=== PATIENT | female | born 1975 | race Caucasian/White ===

== ENCOUNTER 2025-06-29 15:16 | Outpatient (CLI) | payer BC ==
[2025-06-29 16:30] LABS: #Basophils 0.03 10x3/uL (0.0-0.2); #Eosinophils 0.19 10x3/uL (0.0-0.7); #Monocytes 0.55 10x3/uL (0.11-0.59); #Neutrophils 4.69 10x3/uL (1.40-6.50); %Basophils 0.4 % (0.0-1.0); %Eosinophils 2.6 % (0.0-10.0); %Lymphocytes 24.6 % (21.0-51.0); %Monocytes 7.6 % (0.0-10.0); %Neutrophils 64.5 % (42.0-75.0); Hematocrit 40.3 % (36.0-47.0); Hemoglobin 12.6 g/dL (12.0-16.0); Mean Corpuscular Hemoglobin 27.0 pg (27.0-31.0); Mean Corpuscular Volume 86.3 fL (78.0-98.0); Platelet Count 176 10x3/uL (130-400); Red Blood Cell (RBC) Count 4.67 mill/uL (4.20-5.40); White Blood Cell (WBC) Count 7.27 10x3/uL (4.8-10.8)
[2025-06-29 16:52] LABS: Anion Gap 14 mmol/L (10-20); BUN (Urea Nitrogen) 10 mg/dL (7.0-18.7); Calc. Creatinine Clearance 0 mL/min (70-130); Calcium 9.0 mg/dL (7.8-10.44); Carbon Dioxide 24 mmol/L (22-29); Chloride 108 mmol/L (98-107); Glucose 95 mg/dL (70-105); Potassium 4.1 mmol/L (3.5-5.1); Sodium 142 mmol/L (136-145)
== END 2025-06-29 15:17 | disposition home or self-care (01) ==
LOC: LABBT 15:16
PROVIDERS: ATTEND Orthopaedic Surgery Hand Surgery
DX: Z01.818 Encounter for other preprocedural examination (principal); M65.342 Trigger finger, left ring finger
CPT/HCPCS: 80048; 85025; 93005; 93010

== ENCOUNTER 2025-07-01 06:12 | Day surgery (SDC) | payer BC ==
[2025-06-29 15:29] VITALS: BMI 33.0
[2025-07-01] MEDS ORDERED: Bacitracin Zinc Ointment 30 gm TUBE ONE (06:59)
[2025-07-01] MEDS ORDERED: CEFAZOLIN 2 GM VIAL ONE (07:13)
[2025-07-01] MEDS ORDERED: Famotidine/PF 20 mg/2ml Vial ONE (08:11)
[2025-07-01] MEDS ORDERED: fentaNYL PF 100 MCG/2 ML SYRINGE ONE (08:15)
[2025-07-01] MEDS ORDERED: PROPOFOL 20 ML ONE (08:15)
[2025-07-01] MEDS ORDERED: Lidocaine 1% PF 5 ML VIAL ONE (08:17)
[2025-07-01] MEDS ORDERED: Glycopyrrolate 0.2 MG/ML 5 ML SYRINGE ONE (08:17)
[2025-07-01] MEDS ORDERED: Ketamine In 0.9 % NaCl 50 MG/5 ML SYRINGE ONE (08:21)
[2025-07-01] MEDS ORDERED: Ketorolac Tromethamine 30 MG (1 mL) VIAL ONE (08:58)
[2025-07-01] MEDS ORDERED: Ondansetron PF 4 MG/2 ML Vial ONE ×2 (08:58→09:56)
== END 2025-07-01 10:38 | disposition home or self-care (01) ==
LOC: SDC 06:12
PROVIDERS: ATTEND Orthopaedic Surgery Hand Surgery
PROC: 0LN80ZZ Release Left Hand Tendon, Open Approach (ICD-10-PCS; principal; 2025-07-01)
DX: M65.342 Trigger finger, left ring finger (principal); M65.322 Trigger finger, left index finger; M65.332 Trigger finger, left middle finger; I10 Essential (primary) hypertension; E11.9 Type 2 diabetes mellitus without complications; K21.9 Gastro-esophageal reflux disease without esophagitis; K22.70 Barrett's esophagus without dysplasia; D64.9 Anemia, unspecified; Z95.1 Presence of aortocoronary bypass graft; Z91.030 Bee allergy status; Z91.013 Allergy to seafood; Z88.8 Allergy status to other drugs, medicaments and biological substances; Z79.85 Long-term (current) use of injectable non-insulin antidiabetic drugs; Z79.4 Long term (current) use of insulin; Z79.899 Other long term (current) drug therapy
CPT/HCPCS: 36416; 88304; A6223; J0665; J0702; J1100; J1308; J1885; J2405; J2704; J3490